=== PATIENT | female | born 2000 | race Hispanic/Latino ===

== ENCOUNTER 2023-05-05 13:13 | Outpatient (CLI) | payer OTHER, SELFPAY ==
[2023-05-05 14:40] LABS: Appearance Urine UA CLEAR; Bilirubin Urine UA NEGATIVE (NEGATIVE); Color Urine UA YELLOW; Glucose Urine UA NEGATIVE (Negative); Ketones Urine UA NEGATIVE (NEGATIVE); Leukocyte Esterase Urine UA 1+ (NEGATIVE); Nitrite Urine UA NEGATIVE (Negative); Occult Blood Urine UA NEGATIVE (Negative); Protein Urine UA NEGATIVE (Negative); Urobilinogen Urine UA 0.2 E.U./dL (0.2)
[2023-05-05 14:42] LABS: pH Urine UA 6.5 (4.5-8.0)
[2023-05-05 14:50] LABS: Bacteria Urine Many (>30); Culture Indicated Urine Specimen Cultured; RBC Urine None Seen (0-5/HPF); Squamous Epithelial Cell Urine 10-30 /HPF (0-5/HPF); WBC Urine 1-5/HPF (0-5/HPF)
--- NOTE | 2023-05-05 15:13 | P.TNLD_ITS ---
Visit Information Visit Information Date of evaluation: 05/05/23 Primary OB Provider: Katherine Canela On-call OB Provider: Romi Cronin Reason for Evaluation: Yes other Comments/Additional reasons for admission: Abdominal pain Vital Signs Vital Signs: Blood pressure 110/56, pulse 75, temperature 36.4? [facility] Medical History (Updated 05/05/23 @ 15:23 by Romi Cronin MD) Dysmenorrhea Irregular menses Surgical History (Updated 04/20/23 @ 08:06 by Elayne Thomas, RN) No pertinent past surgical history Family History (Updated 04/20/23 @ 08:09 by Elayne Thomas, RN) Mother Cancer Social History marital status: unmarried,single number of children: 0 lives independently: Yes caregiver/support person: No housing: apartment pets and animals: No education level: high school occupational status: employed (active duty, cook) current occupational exposures/hazards: No special naye needs: No travel history: recent (domestic only) seatbelt use: always water heater temp set < 120 deg: Yes working smoke detector in home: Yes fire extinguisher in home: No carbon monox detector in home: Yes firearms in home: No do you feel safe at home: Yes Smoking Status: Former smoker (quit age 20) Tobacco: How many years used: 3 (off and on) second hand exposure: No alcohol intake: former (occasionally when not ) substance use type: does not use during the past year weight has: increased > 10 lbs well-balanced diet: rarely or never daily servings fruits/ve-4 (1-2) caffeine: No Type(s) of exercise: none (hip/round ligament pain. Interested in PT referral.) additional social history: Currently going through a divorce, does not want her soon-to-be ex- to be contacted. Instructed pt that she needs to complete a HCPOA form with [facility] medical and get us a copy if she doesn't want her to be her NOK. She is also not sure at this point what the plan will be around child support and/or custody agreements, advised her to also discuss this with [facility] legal. Review of Systems Review of Systems Narrative: Patient complains of not feeling well. She is fatigued. She is having low pelvic pain and upper abdominal pain. Patient has had intermittent constipation. No vaginal bleeding. No leakage of fluid. Good movement. Patient does have significant amount of heartburn. She denies any UTI symptoms however notices her urine seems concentrated. Patient by history has been to the emergency room multiple times during this . She has been getting care at [facility]. We do not have access to those records other than a visit in to the emergency room for anxiety and depression. The patient states that she is getting good counseling and feels stable emotionally at this time. Exam Narrative Exam Narrative: Patient's abdomen is soft with tenderness in the mid upper abdomen without rebound. Uterus is nontender at the fundus and mid part of the uterus but complains of tenderness with palpation suprapubically. Objective Labs Labs: Laboratory Results - last 24 hr 05/05/23 13:25 Urine Color Yellow Urine Appearance Clear Urine pH 6.5 Ur Specific [place] 1.010 Urine Protein Negative Urine Glucose (UA) Negative Urine Ketones Negative Urine Occult Blood Negative Urine Nitrate Negative Urine Bilirubin Negative Urine Urobilinogen 0.2 Ur Leukocyte Esterase 1+ H Urine RBC None seen Urine WBC 1-5/hpf Ur Squamous Epith Cells 10-30 /hpf H Urine Bacteria Many (>30) H Ur Culture Indicated? Specimen cultured Evaluation Evaluation Baseline heart rate: 130 Variability: Moderate (11-25) monitor accelerations: Present Monitor Decelerations: Absent Category of Tracing: Reactive Status: Category l Cervical dilation (cm): 0 Cervical effacement (%): 0 station: -4 Comments: Patient with a couple of small contractions seen on monitor but nothing regular and the patient's symptoms do not appear to be labor symptoms. Diagnosis, Plan/Disposition Final Diagnosis (1) 33 weeks gestation of : Status: Acute (2) UTI (urinary tract infection): Status: Acute (3) Mild acid reflux: Status: Acute Plan/Disposition Plan: Patient with some vague symptoms of not feeling well with upper and lower abdominal pain with urine possibly showing UTI. Patient will be treated for possible UTI. She is to push fluids. Patient with upper abdominal pain could be from acid stomach. Patient will be started on omeprazole. Doubt labor but patient encouraged to rest and push fluids until her transferring OB care visit with Dr. Canela on 05/10. She was given a note to stay off work and rest until that visit. She is to return if she has vaginal bleeding, leakage of fluid, fevers, increasing abdominal pain. OB Disposition: home
== END 2023-05-05 15:06 | disposition home or self-care (01) ==
LOC: LABOR 13:40 → OB 05-06 12:20
PROVIDERS: PCP Student in an Organized Health Care Education/Training Program; Referring Provider Specialist; Visit Provider Specialist
DX: O23.43 Unspecified infection of urinary tract in pregnancy, third trimester (principal); O26.893 Other specified pregnancy related conditions, third trimester; K21.9 Gastro-esophageal reflux disease without esophagitis; Z3A.33 33 weeks gestation of pregnancy
CPT/HCPCS: 59025; 81001; 87086; G0378; G0379

== ENCOUNTER 2023-05-13 12:48 | Outpatient (CLI) | payer OTHER, SELFPAY ==
[2023-05-13 13:24] LABS: Appearance Urine UA CLEAR; Bilirubin Urine UA NEGATIVE (NEGATIVE); Color Urine UA YELLOW; Glucose Urine UA NEGATIVE (Negative); Ketones Urine UA 1+ (NEGATIVE); Leukocyte Esterase Urine UA TRACE (NEGATIVE); Nitrite Urine UA NEGATIVE (Negative); Occult Blood Urine UA NEGATIVE (Negative); Protein Urine UA 1+ (Negative); Specific Gravity Urine UA 1.025 (1.000-1.035)
[2023-05-13 13:42] LABS: Bacteria Urine Moderate (10-30); Culture Indicated Urine Specimen Cultured; Mucus Urine 1+ (Negative); RBC Urine 0-1/HPF (0-5/HPF); Squamous Epithelial Cell Urine 1-5 /HPF (0-5/HPF); WBC Urine 1-5/HPF (0-5/HPF)
--- NOTE | 2023-05-13 14:37 | P.TNLD_ITS ---
Visit Information Visit Information Date of evaluation: 05/13/23 Primary OB Provider: Katherine Canela On-call OB Provider: Romi Cronin Reason for Evaluation: Yes rule out labor Comments/Additional reasons for admission: Abdominal pain Vital Signs Vital Signs: Blood pressure 109/65, pulse 76, temperature 96.7? [facility] Medical History (Updated 05/13/23 @ 14:40 by Romi Cronin MD) Dysmenorrhea Irregular menses Surgical History (Updated 04/20/23 @ 08:06 by Elayne Thomas RN) No pertinent past surgical history Family History (Updated 05/10/23 @ 12:05 by Katherine Canela MD) Mother Cancer Social History marital status: unmarried,single number of children: 0 lives independently: Yes caregiver/support person: No housing: apartment pets and animals: No education level: high school occupational status: employed (active duty, cook) current occupational exposures/hazards: No special naye needs: No travel history: recent (domestic only) seatbelt use: always water heater temp set < 120 deg: Yes working smoke detector in home: Yes fire extinguisher in home: No carbon monox detector in home: Yes firearms in home: No do you feel safe at home: Yes Smoking Status: Former smoker (quit age 20) Tobacco: How many years used: 3 (off and on) second hand exposure: No alcohol intake: former (occasionally when not ) substance use type: does not use during the past year weight has: increased > 10 lbs well-balanced diet: rarely or never daily servings fruits/ve-4 (1-2) caffeine: No Type(s) of exercise: none (hip/round ligament pain. Interested in PT referral.) additional social history: Currently going through a divorce, does not want her soon-to-be ex- to be contacted. Instructed pt that she needs to complete a HCPOA form with [facility] and get us a copy if she doesn't want her to be her NOK. She is also not sure at this point what the plan will be around child support and/or custody agreements, advised her to also discuss this with [facility] legal. Review of Systems Review of Systems Narrative: Patient states she was constipated and had significant discomfort in her upper abdomen and felt prolonged tightness in her upper abdomen. Good movement. No vaginal bleeding. No leakage of fluid. No fever or chills. Patient is just finishing antibiotics she got a week ago when she presented complaining of abdominal pain and possible UTI. Exam Narrative Exam Narrative: Patient's abdomen is soft and nontender. Uterus is soft and nontender. Fetus is vertex. Objective Labs Labs: Laboratory Results - last 24 hr 05/13/23 13:05 Urine Color Yellow Urine Appearance Clear Urine pH 7.0 Ur Specific [place] 1.025 Urine Protein 1+ H Urine Glucose (UA) Negative Urine Ketones 1+ H Urine Occult Blood Negative Urine Nitrate Negative Urine Bilirubin Negative Urine Urobilinogen 1.0 Ur Leukocyte Esterase Trace H Urine RBC 0-1/hpf Urine WBC 1-5/hpf Ur Squamous Epith Cells 1-5 /hpf D Urine Bacteria Moderate (10-30) H Urine Mucus 1+ H Ur Culture Indicated? Specimen cultured Evaluation Evaluation Baseline heart rate: 135 Variability: Moderate (11-25) monitor accelerations: Present Monitor Decelerations: Absent Contraction Frequency (minutes): 0 Category of Tracing: Reactive Status: Category l Diagnosis, Plan/Disposition Final Diagnosis (1) 34 weeks gestation of : Status: Acute (2) Abdominal pain affecting : Status: Acute Plan/Disposition Plan: Patient with abdominal discomfort and tightness yesterday that resolved after having a bowel movement after constipation. Patient reassured that the discomfort and tightness were due to the constipation. Keep her routine OB appointment. OB Disposition: home
== END 2023-05-13 14:00 | disposition home or self-care (01) ==
LOC: LABOR 13:09 → OB 05-18 06:13
PROVIDERS: Specialist; PCP Student in an Organized Health Care Education/Training Program; Referring Provider Family Medicine; Visit Provider Family Medicine
DX: O26.893 Other specified pregnancy related conditions, third trimester (principal); K59.00 Constipation, unspecified; Z3A.34 34 weeks gestation of pregnancy
CPT/HCPCS: 59025; 81001; 87086; G0378; G0379

== ENCOUNTER → 2023-05-24 11:44 | Outpatient (CLI) | payer OTHER, SELFPAY ==
[2023-05-25 14:44] LABS: Strep Grp B PCR NEG for Grp B Strep
== END ==
PROVIDERS: PCP Student in an Organized Health Care Education/Training Program; Visit Provider Family Medicine
DX: Z34.03 Encounter for supervision of normal first pregnancy, third trimester (principal); Z3A.36 36 weeks gestation of pregnancy
CPT/HCPCS: 87653

== ENCOUNTER 2023-06-03 11:18 | Outpatient (CLI) | payer OTHER, SELFPAY ==
--- NOTE | 2023-06-03 15:53 | PM.OBTRLD ---
[facility] Medical History (Updated 06/03/23 @ 15:55 by Tata Perez DO) Dysmenorrhea Irregular menses Surgical History (Updated 04/20/23 @ 08:06 by Elayne Thomas RN) No pertinent past surgical history Family History (Updated 05/10/23 @ 12:05 by Katherine Canela MD) Mother Cancer Social History marital status: unmarried,single number of children: 0 lives independently: Yes caregiver/support person: No housing: apartment pets and animals: No education level: high school occupational status: employed (active duty, cook) current occupational exposures/hazards: No special nyae needs: No travel history: recent (domestic only) seatbelt use: always water heater temp set < 120 deg: Yes working smoke detector in home: Yes fire extinguisher in home: No carbon monox detector in home: Yes firearms in home: No do you feel safe at home: Yes Smoking Status: Former smoker (quit age 20) Tobacco: How many years used: 3 (off and on) second hand exposure: No alcohol intake: former (occasionally when not ) substance use type: does not use during the past year weight has: increased > 10 lbs well-balanced diet: rarely or never daily servings fruits/ve-4 (1-2) caffeine: No Type(s) of exercise: none (hip/round ligament pain. Interested in PT referral.) additional social history: Currently going through a divorce, does not want her soon-to-be ex- to be contacted. Instructed pt that she needs to complete a HCPOA form with [facility] and get us a copy if she doesn't want her to be her NOK. She is also not sure at this point what the plan will be around child support and/or custody agreements, advised her to also discuss this with [facility] legal. Diagnosis, Plan/Disposition Final Diagnosis (1) 37 weeks gestation of : Status: Acute (2) Decreased movement: Status: Acute Plan/Disposition Plan: 22yo at 37+1wks presented to triage for decreased movement. Reactive NST obtained by nursing, I reviewed this after the patient had departed. -f/u in clinic as scheduled OB Disposition: home
== END 2023-06-03 11:58 | disposition home or self-care (01) ==
LOC: LABOR 11:38 → OB 06-21 12:06
PROVIDERS: PCP Student in an Organized Health Care Education/Training Program; Referring Provider Family Medicine; Visit Provider Family Medicine
DX: O36.8130 Decreased fetal movements, third trimester, not applicable or unspecified (principal); Z3A.37 37 weeks gestation of pregnancy
CPT/HCPCS: 59025; G0378; G0379

== ENCOUNTER 2023-06-05 00:55 | Inpatient (IN) | payer OTHER, SELFPAY ==
--- NOTE | 2023-06-05 06:29 | PM.OBHP.1 ---
OB HPI Date/Time Date of admission: 06/05/23 Date Patient Seen: 06/05/23 Time Patient Seen: 06:29 History of Present Condition Chief complaint: contractions : 1 Para: 0 Estimated Date of Delivery: 06/23/23 Estimated Gestational Age (weeks): 37 Narrative: Alannah Casillas is a 22 year old female admitted with contractions and change in her cervix with patient concern for possible HSV infection requesting primary low-transverse section. Indications Operative indications ( section): HSV History of Present care: good care, initiated at week # (14) and number of visits (8) Dating criteria: LMP confirmed by 1st trimester US Medical complications: psychiatric (Anxiety and depression) Preadmission Labs Blood type: O (+) positive -: Antibody screen: negative, GBS status: negative, HBsAG: negative, HSV 1: positive, HSV 2: positive and RPR/VDLR: negative -: Chlamydia screen: not detected -: Varicella: immune HCAB: reactive Quad screen: Normal 1 hr GTT: 88 Evaluation Evaluation Baseline heart rate: 120 Variability: Moderate (11-25) monitor accelerations: Present Monitor Decelerations: Episodic Contraction Frequency (minutes): 3 Uterine Contraction Intensity: Moderate Category of Tracing: Reactive Status: Category ll Dilation (cm): 2 Effacement (%): 50 station: -2 Position of cervix: posterior Consistency: medium [facility] Medical History (Updated 06/05/23 @ 09:27 by Romi Cronin MD) Dysmenorrhea Irregular menses Surgical History (Updated 04/20/23 @ 08:06 by Elayne Thomas RN) No pertinent past surgical history Family History (Updated 05/10/23 @ 12:05 by Katherine Canela MD) Mother Cancer Social History marital status: unmarried,single number of children: 0 lives independently: Yes caregiver/support person: No housing: apartment pets and animals: No education level: high school occupational status: employed (active duty, cook) current occupational exposures/hazards: No special naye needs: No travel history: recent (domestic only) seatbelt use: always water heater temp set < 120 deg: Yes working smoke detector in home: Yes fire extinguisher in home: No carbon monox detector in home: Yes firearms in home: No do you feel safe at home: Yes Smoking Status: Former smoker (quit age 20) Tobacco: How many years used: 3 (off and on) second hand exposure: No alcohol intake: former (occasionally when not ) substance use type: does not use during the past year weight has: increased > 10 lbs well-balanced diet: rarely or never daily servings fruits/ve-4 (1-2) caffeine: No Type(s) of exercise: none (hip/round ligament pain. Interested in PT referral.) additional social history: Currently going through a divorce, does not want her soon-to-be ex- to be contacted. Instructed pt that she needs to complete a HCPOA form with [facility] medical and get us a copy if she doesn't want her to be her NOK. She is also not sure at this point what the plan will be around child support and/or custody agreements, advised her to also discuss this with [facility] legal. Meds Home Medications and Allergies Home Medications Medication Instructions Recorded Confirmed Type valacyclovir 500 mg tablet 500 mg PO BID 04/20/23 05/24/23 History cephalexin 500 mg capsule 500 mg PO BID Infection #14 caps 05/05/23 05/24/23 Rx omeprazole 40 mg capsule,delayed 40 mg PO DAILY #90 caps 05/05/23 05/24/23 Rx release ondansetron 4 mg disintegrating 4 mg PO Q8H PRN nausea and 05/24/23 05/24/23 Rx tablet vomiting #30 tabs Allergies Allergy/AdvReac Type Severity Reaction Status Date / Time aspirin Allergy Intermediate Hives Verified 05/24/23 11:24 Review of Systems Review of Systems Narrative: Patient arrived on Labor and delivery complaining contractions all day. They were consistent but shortened duration. Patient had noticed an increased vaginal discharge but no actual rupture membranes. No vaginal bleeding. Good movement. No headaches. Patient is concerned she might have an HSV infection despite taking medication for suppression. Patient had planned on primary section for her HSV concern. OB Exam Vital signs Blood Pressure: 115/66 Pulse Rate: 80 Temperature: 35.9 F Narrative Exam Narrative: HEENT exam within normal limits. Lungs are clear to auscultation percussion. No thyromegaly. Heart is regular rate and rhythm no S3-S4 murmurs. Abdomen is gravid. Fetus is vertex. Extremities without edema and nontender. Objective Labs 06/05/23 06:30 Assessment and Plan Assessment and Plan Assessment and Plan narrative: 22-year-old EDC 06/23 by LMP only now at 37 weeks 3 days arrived in early labor with history of HSV and concern for possible outbreak patient requesting primary low-transverse section Time Spent with Patient Total time spent with greater than 50% in coordination of care (as documented) at patient's floor/unit and/or counseling patient:: less than 15 minutes
[2023-06-05 06:44] VITALS: BP 115/66; PULSE 80; TEMP 2.2; TEMP 35.9
--- NOTE | 2023-06-05 07:01 | PM.PREOP ---
Pre-operative Note Interval Note History & Physical reviewed/Exam performed by Physician: Yes Changes to H&P: No
[2023-06-05 07:59] LABS: Add Manual Diff / Slide Review NO; Basophils Absolute Auto 100 /uL (0-100); Basophils Percent Auto 0.4 % (0-2); Eosinophils Absolute Auto 100 /uL (0-450); Eosinophils Percent Auto 0.7 % (2-4); Hematocrit 34.2 % (36-46); Hemoglobin 11.3 g/dL (12.0-16.0); Lymphocytes Absolute Auto 3300 /uL (1100-4500); Lymphocytes Percent Auto 23.2 % (25-40); Mean Corpuscular Hemoglobin 28.6 PG (26-34); Mean Corpuscular Volume 86.9 fL (80-100); Monocytes Absolute Auto 600 /uL (0-900); Neutrophils Absolute Auto 10100 /uL (1500-7000); Neutrophils Percent Auto 71.7 % (50-75); Platelet Count 260 X10^3/uL (150-400); Red Blood Cell Count 3.93 X10^6/uL (4.0-5.2); Red Cell Distribution Width 16.1 % (11.6-14.8); White Blood Cell Count 14.1 X10^3/uL (4.5-11.0)
[2023-06-05] MEDS: CEFAZOLIN 2 GM/100 ML PREMIX 100 ML IV (08:25)
[2023-06-05] MEDS: ACETAMINOPHEN IV 1,000 MG/100 ML VIAL 400 MG IV (08:35)
--- NOTE | 2023-06-05 08:40 | SUR.OPER ---
Supine on padded OR bed, head on pillow, arms secured on padded arm boards at <90 degrees abduction, legs uncrossed, safety belt at thigh, tape over blanket over lower legs.
--- NOTE | 2023-06-05 08:54 | SUR.OPER ---
Viable baby boy delivered at 0843. Placenta delivered. Placenta and cord blood tubesx2 given to L&D RN.
[2023-06-05 09:09] LABS: Hepatitis B Surface Antigen NEGATIVE s/c (NEGATIVE)
[2023-06-05 09:24] VITALS: BP 108/55; PULSE 76; RESP 14; TEMP 36.3; O2SAT 100
[2023-06-05 09:28] VITALS: BP 112/57; PULSE 78; RESP 18; O2SAT 100
--- NOTE | 2023-06-05 09:31 | PM.OBCS.1 ---
Operative Date/Time/Diagnoses Date of procedure: 06/05/23 Time of procedure: 09:31 Pre-op diagnosis: 37 week gestation in active labor with concerns for HSV for primary section Post-op diagnosis: same Procedure & Clinicians Procedure: Primary low-transverse section Same procedure as scheduled: Yes Indications: Active labor with concerns for HSV infection at 37 weeks Surgeon: Romi Cronin Click Yes if Unassisted: Yes Anesthesia Type: Spinal Operative Notes Findings: Vertex fetus, normal tubes, ovaries, uterus Closure Type: primary Specimen(s): cord blood Intraoperative meds administered: Acetaminophen, Duramorph, Ketorolac and Pitocin Applied: Catheter (Gomes) Estimated Blood Loss (mL): 300 Blood products transfused: none Procedure in detail: The patient was brought to the operating room where she underwent a spinal for anesthesia. She was placed in a supine position with a left lateral tilt. A Gomes catheter was placed. Pulsatile stockings were placed and functional throughout the case. 2 g of Ancef were given IV prior to the incision. Warming was in place. The patient was prepped and draped in usual sterile fashion. A low transverse incision was made with a scalpel and the incision was carried down to the fascial layer which was incised transversely with scissors. The midline attachments are superiorly and inferiorly. Some bleeding was controlled Bovie. The rectus muscles were in the midline and the peritoneal incision was made with no damage to internal structures. The peritoneum was incised and superiorly and inferiorly. The incision was stretched with the surgeon and program assistant placing traction. Bladder blade was placed and a bladder flap was developed and the bladder held away from the lower uterine segment. An incision was made in the uterus with the scalpel and the incision was extended with stretching. The head was elevated out of the abdomen and with fundal pressure by the program assistant the baby was delivered. The infant was bulb suctioned for clear fluid and handed off to the warmer. Cord blood was collected. The placenta delivered spontaneously with traction. The uterus was cleaned with clean laps. The uterine incision was closed in 2 layers of 0 chromic suture the first a running locking layer the second an imbricating layer. The bladder peritoneum was repaired with 2-0 Vicryl suture. The gutters were cleaned of any remaining fluids and ovaries and tubes were observed to be normal. Adequate hemostasis was noted. The peritoneum was closed with 2-0 Vicryl suture. The fascia layer was closed with 0 Vicryl suture with 2 stitches. The incision was irrigated and adequate hemostasis noted. The incision was closed with interrupted 3-0 Vicryl sutures and then a subcuticular stitch of 4-0 Vicryl suture. Steri-Strips were placed. The uterus was massaged to remove any clots. The patient went to recovery room in good condition. Counts of instruments and sponges were correct. Complications: none Baby 1: Infant Gender: Male Presentation: vertex Position: Right Occiput Anterior Placental Delivery Description: Spontaneous Cord Vessel Description: 3 Vessels score (1 min): 8 score (5 min): 8 weight: 5 lb 4.799 oz Post-operative Condition: stable Disposition: other ( Center) Aftercare: routine postop
[2023-06-05 09:33] VITALS: BP 112/52; PULSE 75; RESP 17; O2SAT 100
[2023-06-05 09:45] VITALS: BP 109/48; PULSE 70; RESP 20; TEMP 36.2; O2SAT 100
[2023-06-05] MEDS: KETOROLAC 30 MG/ML VIAL IV ×2 (15:45→21:45)
[2023-06-05] MEDS: ACETAMINOPHEN 325 MG TABLET 650 MG PO (17:50)
--- NOTE | 2023-06-05 20:23 | PM.OBPN.1 ---
Subjective - OB Subjective Patient comments: no complaints and pain well controlled [place] baby status: doing well [place] feeding status: exclusively breast feeding Narrative: Postoperative section doing well. Date Patient Seen: 06/05/23 Time Patient Seen: 20:23 Exam Vital Signs (past 8 hours): Blood pressure 105/54, pulse of 86, temperature 97.6? Oxygen Delivery Method Room Air Narrative Exam Narrative: Abdomen is soft, nontender. Uterus is firm, at U, nontender. Dressing is clean, dry, intact. Mild lochia. Extremities without edema and nontender Objective Labs 06/05/23 06:30 Labs: Laboratory Results - last 24 hr 06/05/23 06/05/23 06/05/23 06:30 06:30 06:30 WBC 14.1 H RBC 3.93 L Hgb 11.3 L Hct 34.2 L MCV 86.9 MCH 28.6 MCHC 33.0 RDW 16.1 H Plt Count 260 Neut % (Auto) 71.7 Lymph % (Auto) 23.2 L [place] % (Auto) 4.0 Eos % (Auto) 0.7 L Baso % (Auto) 0.4 Neut # (Auto) 84039 H Lymph # (Auto) 3300 [place] # (Auto) 600 Eos # (Auto) 100 Baso # (Auto) 100 Hep Bs Antigen Negative Rubella Antibody 112.0 Blood Type O Positive Antibody Screen Negative Assessment & Plan Plan day: 0 plan OB: routine postop care Comments: Patient is doing well. Time Spent With Patient Time: Total time spent is greater than 50% in coordination of care (as documented) at patient's floor/unit and/or counseling patient: Time with patient: less than 15 minutes
[2023-06-06] MEDS: ACETAMINOPHEN 325 MG TABLET 650 MG PO ×3 (00:42→13:08)
[2023-06-06] MEDS: KETOROLAC 30 MG/ML VIAL IV (03:40)
[2023-06-06 05:10] LABS: RPR Screen Non Reactive (Non Reactive)
[2023-06-06 11:57] LABS: Add Manual Diff / Slide Review NO; Basophils Absolute Auto 0 /uL (0-100); Basophils Percent Auto 0.3 % (0-2); Eosinophils Absolute Auto 100 /uL (0-450); Eosinophils Percent Auto 0.5 % (2-4); Hematocrit 27.2 % (36-46); Hemoglobin 9.1 g/dL (12.0-16.0); Lymphocytes Absolute Auto 1900 /uL (1100-4500); Lymphocytes Percent Auto 14.7 % (25-40); Mean Corpuscular HGB Conc 33.2 % (30-36); Mean Corpuscular Volume 87.2 fL (80-100); Monocytes Absolute Auto 800 /uL (0-900); Monocytes Percent Auto 5.9 % (3-14); Neutrophils Absolute Auto 10100 /uL (1500-7000); Neutrophils Percent Auto 78.6 % (50-75); Platelet Count 222 X10^3/uL (150-400); Red Blood Cell Count 3.13 X10^6/uL (4.0-5.2); Red Cell Distribution Width 15.8 % (11.6-14.8); White Blood Cell Count 12.8 X10^3/uL (4.5-11.0)
--- NOTE | 2023-06-06 12:13 | PM.OBDS.1 ---
Discharge Providers Provider Date of admission: 06/05/23 00:55 Discharge Date: 06/06/23 Primary care physician: Preet Leyva DO Consults: 06/05/23 09:48 Consult to Intelligence Analyst Routine Comment: Discharge provider: Romi Cronin MD Summary Hospital Course Date Patient Seen: 06/06/23 Time Patient Seen: 12:13 Diagnoses: 37 week gestation in active labor with concern for HSV infection status post primary low-transverse section Hospital Course: Patient arrived on Labor and delivery in active labor with concern for HSV infection. She underwent a primary low-transverse section. She is bottle-feeding. She is passing gas. She is urinating and ambulating well. Tolerating a regular diet. Peripartum Data Delivery Method: Section (Primary for HSV concerns) Procedures: Primary low-transverse section complications: none [place] 1: Gender: Male Disposition of : home Discharge Diagnosis (1) Delivery by section using transverse incision of lower segment of uterus: Status: Acute (2) 37 weeks gestation of : Status: Acute (3) HSV infection: Status: Acute Problem Details: has had both oral and genital lesions Status at Discharge Cognitive/behavioral status at discharge: oriented Functional status at discharge: independent ambulation Overall status at discharge: patient is progressing back to baseline Time Spent with Patient Time attestation: Total time spent providing and/or coordinating discharge services: Time spent: Less than 30 minutes Objective Labs 06/06/23 11:50 Labs: Laboratory Results - last 24 hr 06/05/23 06:30 Serum VDRL Non reactive Exam Vital Signs (past 8 hours): Blood pressure 115/60, pulse 92, temperature 97.9? Oxygen Delivery Method Room Air Narrative Exam Narrative: Abdomen is soft, nontender. Uterus is firm, at U, appropriately tender. Dressing is clean, dry, intact. Mild lochia. Extremities with trace edema and nontender. Discharge Plan Discharge Plan Patient Disposition: Home Discharge orders & Medications Prescriptions: New docusate sodium 100 mg Capsule 100 mg PO DAILY Qty: 20 0RF ibuprofen 600 mg Tablet 600 mg PO Q6H Qty: 30 0RF oxycodone 5 mg Tablet 5 mg PO Q4H PRN (Reason: Pain, Moderate (4-6)) Qty: 20 0RF Continued ondansetron 4 mg tablet,disintegrating 4 mg PO Q8H PRN (Reason: nausea and vomiting) Qty: 30 0RF omeprazole 40 mg capsule,delayed release(DR/EC) 40 mg PO DAILY Qty: 90 3RF valacyclovir 500 mg tablet 500 mg PO BID No Action ferrous gluconate 324 mg (38 mg iron) tablet 324 mg PO DAILY Qty: 30 0RF Rx Instructions: take with vitamin c Follow up/Referrals: Preet Leyva DO [Primary Care Provider] - Romi Cronin MD [Physician] - 1 Week (aquacel removal Plase call the clinic on Thursday 06/07 for an aquacel removal in one week. ) Diet/Activity/Treatments Diet: Regular Activity: Nothing in vagina or lifting over 10 lb for 6 weeks Skin/Wound/Dressing Care Report to your healthcare provider any signs of infection, such as:: chills, fever and increased pain Dressing: Leave dressing in place until postop appointment Visit Report/Discharge Packet Instructions: DI for , DI for Prescription Opioid Use Stand Alone Forms: Discharge: Care, Patient Portal/API Discharge Data Primary Care Provider: Preet Leyva Attending Provider: Romi Cronin Admit Date/Time: 06/05/23 00:55 Discharges patient from system. Discharge Date/Time: 06/06/23 14:12
[2023-06-06 13:03] VITALS: BP 115/60; PULSE 92; RESP 15; TEMP 36.2
[2023-06-06] MEDS: IBUPROFEN 600 MG TABLET PO (13:08)
[2023-06-06] MEDS: DOCUSATE 100 MG CAPSULE PO (13:09)
== END 2023-06-06 14:12 | disposition home or self-care (01) | DRG 788 ==
PROVIDERS: Admitting Provider Specialist; PCP Student in an Organized Health Care Education/Training Program; Referring Provider Specialist; Visit Provider Specialist
PROC: 10D00Z1 Extraction of Products of Conception, Low, Open Approach (ICD-10-PCS; CPT 59514; principal; 2023-06-05 08:30)
DX: O98.32 Other infections with a predominantly sexual mode of transmission complicating childbirth (principal); Z3A.37 37 weeks gestation of pregnancy; Z37.0 Single live birth; A60.9 Anogenital herpesviral infection, unspecified; B00.1 Herpesviral vesicular dermatitis; O99.344 Other mental disorders complicating childbirth; F41.8 Other specified anxiety disorders
CPT/HCPCS: 36415; 59050; 59515; 80055; 85025; 86850; 86900; 86901; G0378; G0379; J0131; J0690; J1885; J2274; J2405; J2704

== ENCOUNTER 2023-06-26 21:49 | Emergency (ER) | payer OTHER, SELFPAY ==
[2023-06-26] VITALS (7 sets, daily range): BP systolic 107–117; BP diastolic 55–62; PULSE 63–83; RESP 12–21; TEMP 37.5; O2SAT 97–100; BMI 32.1
--- NOTE | 2023-06-26 21:52 | DI.RAD.S_ITS ---
PROCEDURE: XR CHEST 1V INDICATIONS: Chest pain. TECHNIQUE: One view of the chest was acquired. COMPARISON: None. FINDINGS: Surgical changes and devices: None. Lungs and pleura: Lungs are clear. No pleural effusions or pneumothorax. Mediastinum: Mediastinal contours appear normal. Heart size is normal. Bones and chest wall: No suspicious bony lesions. Overlying soft tissues appear unremarkable. IMPRESSION: Portable chest within normal limits for age. Approved by: Sammy Gallego M.D. on 06/26/2023 at 21:47
[2023-06-26 22:09] LABS: Add Manual Diff / Slide Review NO; Basophils Absolute Auto 100 /uL (0-100); Basophils Percent Auto 0.9 % (0-2); Eosinophils Absolute Auto 200 /uL (0-450); Eosinophils Percent Auto 1.4 % (2-4); Hematocrit 30.8 % (36-46); Hemoglobin 10.2 g/dL (12.0-16.0); Lymphocytes Absolute Auto 3300 /uL (1100-4500); Mean Corpuscular Hemoglobin 28.3 PG (26-34); Mean Corpuscular Volume 85.8 fL (80-100); Monocytes Absolute Auto 600 /uL (0-900); Monocytes Percent Auto 5.4 % (3-14); Neutrophils Absolute Auto 7200 /uL (1500-7000); Neutrophils Percent Auto 63.3 % (50-75); Platelet Count 278 X10^3/uL (150-400); Red Blood Cell Count 3.59 X10^6/uL (4.0-5.2); Red Cell Distribution Width 16.3 % (11.6-14.8); White Blood Cell Count 11.4 X10^3/uL (4.5-11.0)
[2023-06-26 22:18] LABS: Alanine Aminotransferase 22 IU/L (<35); Albumin 3.7 g/dL (3.5-5.0); Albumin Globulin Ratio 1.2 (1.0-2.8); Alkaline Phosphatase 106 U/L (38-126); Aspartate Aminotransferase 25 IU/L (14-36); BUN Creatinine Ratio 10.3 (6-22); Bilirubin Total 0.5 mg/dL (0.2-1.3); Blood Urea Nitrogen 6 mg/dL (7-17); Calcium 8.5 mg/dL (8.4-10.2); Carbon Dioxide 22 mmol/L (22-32); Chloride 106 mmol/L (98-107); Estimated Glomerular Filt Rate > 60 mL/min (>60); Glucose 95 mg/dL (70-100); HEMOLYSIS 23 (0-50); Lipase 131 U/L (23-300); Potassium 3.8 mmol/L (3.4-5.1); Sodium 136 mmol/L (137-145); Total Protein 6.7 g/dL (6.3-8.2)
--- NOTE | 2023-06-26 22:21 | ED.CHESTPAIN ---
HPI - Chest Pain General Chief Complaint: Chest Pain Stated Complaint: Sudden onset Chest/Abdominal Pain Time Seen by Provider: 06/26/23 21:49 Source: patient and EMS Mode of arrival: EMS Limitations: no limitations History of Present Illness HPI narrative: Patient is a 22-year-old female. She is 3 weeks from a . She is not . She stated that she was at her normal state of health. She was burping her baby at the time that she had the onset of symptoms. She stated that the child was lying on her chest. She stated that she started to have pain in her chest and then in her abdomen. It was sharp pain. No problems breathing. She stated that the pain was persistent until she received some fentanyl by EMS prior to arrival. She states that currently she is not chest pain-free but it is much improved. She did vomit 2 times. States that vomiting did improve the chest pain somewhat. The C-sections no other abdominal surgeries. 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 Pain did not radiate anywhere and was just in the front of her chest and upper abdomen. Related Data Home Medications Medication Instructions Recorded Confirmed valacyclovir 500 mg tablet 500 mg PO BID 04/20/23 06/14/23 Previous Rx's Medication Instructions Recorded omeprazole 40 mg capsule,delayed 40 mg PO DAILY #90 caps 05/05/23 release ondansetron 4 mg disintegrating 4 mg PO Q8H PRN nausea and 05/24/23 tablet vomiting #30 tabs docusate sodium 100 mg capsule 100 mg PO DAILY #20 caps 06/06/23 ferrous gluconate 324 mg (38 mg 324 mg PO DAILY anemia #30 tabs 06/06/23 iron) tablet ibuprofen 600 mg tablet 600 mg PO Q6H #30 tabs 06/06/23 oxycodone 5 mg tablet 5 mg PO Q4H PRN Pain, Moderate 06/06/23 (4-6) #20 tabs sertraline 25 mg tablet 25 mg PO DAILY #30 tabs 06/14/23 Allergies Allergy/AdvReac Type Severity Reaction Status Date / Time aspirin Allergy Intermediate Hives Verified 06/14/23 11:53 Review of Systems Constitutional Constitutional: Reports system reviewed and no additional complaints, except as documented Cardiovascular Cardiovascular: Reports system reviewed and no additional complaints, except as documented Respiratory Respiratory: Reports system reviewed and no additional complaints, except as documented Gastrointestinal Gastrointestinal: Reports system reviewed and no additional complaints, except as documented Genitourinary Genitourinary: Reports system reviewed and no additional complaints, except as documented Musculoskeletal Musculoskeletal: Reports system reviewed and no additional complaints, except as documented Integumentary/Breasts Skin/Breast: Reports system reviewed and no additional complaints, except as documented Hematologic/Lymphatic On Anticoagulants: No Patient History Medical History Irregular menses Dysmenorrhea Surgical History (Updated 04/20/23 @ 08:06 by Elayne Thomas RN) No pertinent past surgical history Family History (Updated 05/10/23 @ 12:05 by Katherine Canela MD) Mother Cancer Social History marital status: unmarried,single number of children: 0 lives independently: Yes caregiver/support person: No housing: apartment pets and animals: No education level: high school occupational status: employed (active duty, cook) current occupational exposures/hazards: No special naye needs: No travel history: recent (domestic only) seatbelt use: always water heater temp set < 120 deg: Yes working smoke detector in home: Yes fire extinguisher in home: No carbon monox detector in home: Yes firearms in home: No do you feel safe at home: Yes Smoking Status: Former smoker Tobacco: How many years used: 3 (off and on) second hand exposure: No alcohol intake: former (occasionally when not ) substance use type: does not use during the past year weight has: increased > 10 lbs well-balanced diet: rarely or never daily servings fruits/ve-4 (1-2) caffeine: No Type(s) of exercise: none (hip/round ligament pain. Interested in PT referral.) additional social history: Currently going through a divorce, does not want her soon-to-be ex- to be contacted. Instructed pt that she needs to complete a HCPOA form with [facility] and get us a copy if she doesn't want her to be her NOK. She is also not sure at this point what the plan will be around child support and/or custody agreements, advised her to also discuss this with base legal. Smoking Status: Former smoker Substance Use Type: does not use Exam Initial Vital Signs Initial Vital Signs: Vital Signs Pulse Rate 69 06/26/23 21:52 Respiratory Rate 14 06/26/23 21:52 Pulse Oximetry 99 06/26/23 21:52 HENMT Head: normal to inspection and normocephalic Resp Effort & Inspection: normal respiratory effort Auscultation: clear to auscultation bilaterally Cardio Rate: regular rate Rhythm: regular rhythm GI Inspection: normal to inspection and non-distended Palpation: soft, No firm, No guarding and No tender Skin General: no rashes or lesions noted Neuro General: patient alert, patient awake and moves all extremities Extrem General: No edema Scores HEART Score Heart Score history: Slightly Suspicious Heart Score EKG: Non-Specific repolarization disturbance Heart Score Age: < 45 years old Heart Score risk factors: No known risk factors Heart Score troponin: < or = to normal limit Heart Score Total: 1 Course Orders Ordered: ED Orders 06/26/23 21:52 XR chest 1V Stat Complete Blood Count AUTO DIFF Stat Comprehensive Metabolic Panel Stat Covid-19 + FLU A/B + RSV - PCR Stat Lipase Stat 06/26/23 21:53 EKG-12 Lead Stat 06/26/23 22:12 Troponin & CK Cardiac Panel Stat Vital Signs Vital signs: Vital Signs - 8 hr 06/26/23 21:52 06/26/23 21:53 06/26/23 21:53 Temperature Pulse Rate 69 70 Respiratory Rate 14 16 Blood Pressure 117/55 L Pulse Oximetry 99 98 Oxygen Delivery Method 06/26/23 21:55 06/26/23 22:00 06/26/23 22:01 Temperature 99.5 F Pulse Rate 77 73 83 Respiratory Rate 18 12 20 Blood Pressure 117/55 L Pulse Oximetry 97 99 100 Oxygen Delivery Method Room Air 06/26/23 22:01 06/26/23 22:30 06/26/23 22:30 Temperature Pulse Rate 71 Respiratory Rate 17 Blood Pressure 114/60 107/61 Pulse Oximetry 100 Oxygen Delivery Method MDM - Chest Pain Medical Records Data Attestation: I reviewed the patient's medical records. Lab Data Attestation: I reviewed the patient's lab results. 06/26/23 21:52 06/26/23 21:52 Labs: Lab Results 06/26/23 Range/Units 21:52 WBC 11.4 H (4.5-11.0) X10^3/uL RBC 3.59 L (4.0-5.2) X10^6/uL Hgb 10.2 L (12.0-16.0) g/dL Hct 30.8 L (36-46) % MCV 85.8 (80-100) fL MCH 28.3 (26-34) PG MCHC 33.0 (30-36) % RDW 16.3 H (11.6-14.8) % Plt Count 278 (150-400) X10^3/uL Neut % (Auto) 63.3 (50-75) % Lymph % (Auto) 29.0 (25-40) % [place] % (Auto) 5.4 (3-14) % Eos % (Auto) 1.4 L (2-4) % Baso % (Auto) 0.9 (0-2) % Neut # (Auto) 7200 H (9558-0836) /uL Lymph # (Auto) 3300 (5404-8748) /uL [place] # (Auto) 600 (0-900) /uL Eos # (Auto) 200 (0-450) /uL Baso # (Auto) 100 (0-100) /uL Sodium 136 L (137-145) mmol/L Potassium 3.8 (3.4-5.1) mmol/L Chloride 106 (98-107) mmol/L Carbon Dioxide 22 (22-32) mmol/L BUN 6 L (7-17) mg/dL Creatinine 0.58 (0.52-1.04) mg/dL Estimated GFR > 60 (>60) mL/min BUN/Creatinine Ratio 10.3 (6-22) Glucose 95 (70-100) mg/dL Calcium 8.5 (8.4-10.2) mg/dL Total Bilirubin 0.5 (0.2-1.3) mg/dL AST 25 (14-36) IU/L ALT 22 (<35) IU/L Alkaline Phosphatase 106 (38-126) U/L Total Creatine Kinase 72 (30-135) U/L Troponin I < 0.012 (0.01-0.034) ng/mL Total Protein 6.7 (6.3-8.2) g/dL Albumin 3.7 (3.5-5.0) g/dL Globulin 3.0 (1.7-4.1) g/dL Albumin/Globulin Ratio 1.2 (1.0-2.8) Lipase 131 (23-300) U/L SARS-CoV-2 (PCR) Negative (Negative) Influenza A (RT-PCR) Flu a negative (NEGATIVE) Influenza B (RT-PCR) Flu b negative (NEGATIVE) RSV (PCR) Negative (Negative) Imaging Data Chest x-ray: Radiologist's Impression: PROCEDURE: XR CHEST 1V INDICATIONS: Chest pain. TECHNIQUE: One view of the chest was acquired. COMPARISON: None. FINDINGS: Surgical changes and devices: None. Lungs and pleura: Lungs are clear. No pleural effusions or pneumothorax. Mediastinum: Mediastinal contours appear normal. Heart size is normal. Bones and chest wall: No suspicious bony lesions. Overlying soft tissues appear unremarkable. IMPRESSION: Portable chest within normal limits for age. ECG Data Attestation: I personally reviewed and interpreted this ECG as follows: Interpretation: Sinus rhythm Ventricular rate is 74 Normal axis Inverted T-waves V3 and AVF No ST elevations MDM Narrative Medical decision making narrative: Chest x-ray is unremarkable. Nonspecific changes on the EKG. Low risk heart score. Low suspicion for pulmonary embolism. Low suspicion for ACS. No indication for antibiotics. Her LFTs and lipase unremarkable. Had a discussion with her regarding her symptoms. We did discuss the lack of a definitive etiology and she understands this. Patient can be safely discharged home. She even brought up whether or not this could potentially be anxiety which obviously this is a possibility. Will have patient follow-up with her primary provider. She was given return precautions. Discharge Plan Departure Patient Disposition: Home Clinical Impression: Atypical chest pain Instructions: DI for Atypical Chest Pain Activity Restrictions/Additional Instructions: Your workup here in the emergency department is very reassuring. You can try kydz-pit-zonrhfs reflux/heartburn medicine such as Maalox or Tums to see if this improves your symptoms. Recommend you contact your primary provider for a follow-up. Return to the emergency department for new or worsening symptoms. Prescriptions: No Action ondansetron 4 mg tablet,disintegrating 4 mg PO Q8H PRN (Reason: nausea and vomiting) Qty: 30 0RF sertraline 25 mg tablet 25 mg PO DAILY Qty: 30 2RF omeprazole 40 mg capsule,delayed release(DR/EC) 40 mg PO DAILY Qty: 90 3RF ferrous gluconate 324 mg (38 mg iron) tablet 324 mg PO DAILY Qty: 30 0RF Rx Instructions: take with vitamin c valacyclovir 500 mg tablet 500 mg PO BID docusate sodium 100 mg Capsule 100 mg PO DAILY Qty: 20 0RF ibuprofen 600 mg Tablet 600 mg PO Q6H Qty: 30 0RF oxycodone 5 mg Tablet 5 mg PO Q4H PRN (Reason: Pain, Moderate (4-6)) Qty: 20 0RF Referrals: Preet Leyva DO [Primary Care Provider] - Stand Alone Forms: Patient Portal/API
[2023-06-26 22:39] LABS: Creatine Kinase 72 U/L (30-135)
[2023-06-26 22:41] LABS: Influenza A - CEPHEID Flu A NEGATIVE (NEGATIVE); Influenza B - CEPHEID Flu B NEGATIVE (NEGATIVE); Respiratory Syncytial Virus Negative (Negative)
[2023-06-26 22:51] LABS: COVID-19 CEPHEID 4-PLEX PCR Negative (Negative)
[2023-06-26 22:52] LABS: Troponin I < 0.012 ng/mL (0.01-0.034)
== END 2023-06-26 23:20 | disposition home or self-care (01) ==
PROVIDERS: Emergency Provider Emergency Medicine; PCP Student in an Organized Health Care Education/Training Program
DX: R07.89 Other chest pain (principal); Z20.822 Contact with and (suspected) exposure to COVID-19
CPT/HCPCS: 0241U; 36415; 71045; 80053; 82550; 83690; 84484; 85025; 93005; 93010; 99284

== ENCOUNTER → 2023-06-28 14:15 | Outpatient (CLI) | payer OTHER, SELFPAY ==
[2023-06-28 14:47] LABS: Appearance Urine UA CLEAR; Bilirubin Urine UA NEGATIVE (NEGATIVE); Color Urine UA YELLOW; Glucose Urine UA NEGATIVE (Negative); Ketones Urine UA 2+ (NEGATIVE); Leukocyte Esterase Urine UA 1+ (NEGATIVE); Nitrite Urine UA NEGATIVE (Negative); Occult Blood Urine UA NEGATIVE (Negative); Protein Urine UA TRACE (Negative)
[2023-06-28 14:55] LABS: pH Urine UA 6.5 (4.5-8.0)
[2023-06-28 14:59] LABS: Add Manual Diff / Slide Review NO; Basophils Absolute Auto 0 /uL (0-100); Basophils Percent Auto 0.2 % (0-2); Eosinophils Absolute Auto 100 /uL (0-450); Eosinophils Percent Auto 0.9 % (2-4); Hematocrit 31.9 % (36-46); Hemoglobin 10.6 g/dL (12.0-16.0); Lymphocytes Absolute Auto 2600 /uL (1100-4500); Lymphocytes Percent Auto 22.7 % (25-40); Mean Corpuscular HGB Conc 33.2 % (30-36); Mean Corpuscular Hemoglobin 28.9 PG (26-34); Mean Corpuscular Volume 87.1 fL (80-100); Monocytes Absolute Auto 600 /uL (0-900); Monocytes Percent Auto 4.9 % (3-14); Neutrophils Absolute Auto 8100 /uL (1500-7000); Neutrophils Percent Auto 71.3 % (50-75); Platelet Count 301 X10^3/uL (150-400); Red Blood Cell Count 3.66 X10^6/uL (4.0-5.2); Red Cell Distribution Width 16.2 % (11.6-14.8); White Blood Cell Count 11.4 X10^3/uL (4.5-11.0)
[2023-06-28 15:01] LABS: Culture Indicated Urine Specimen Cultured
[2023-06-28 15:02] LABS: Bacteria Urine Moderate (10-30); RBC Urine None Seen (0-5/HPF); Squamous Epithelial Cell Urine 5-10 /HPF (0-5/HPF); WBC Urine 5-10/HPF (0-5/HPF)
[2023-06-28 15:21] LABS: Alanine Aminotransferase 19 IU/L (<35); Albumin 3.9 g/dL (3.5-5.0); Albumin Globulin Ratio 1.3 (1.0-2.8); Alkaline Phosphatase 110 U/L (38-126); Aspartate Aminotransferase 18 IU/L (14-36); BUN Creatinine Ratio 7.6 (6-22); Bilirubin Total 0.8 mg/dL (0.2-1.3); Blood Urea Nitrogen 5 mg/dL (7-17); Calcium 9.3 mg/dL (8.4-10.2); Carbon Dioxide 23 mmol/L (22-32); Chloride 106 mmol/L (98-107); Estimated Glomerular Filt Rate > 60 mL/min (>60); Glucose 90 mg/dL (70-100); HEMOLYSIS < 15 (0-50); Potassium 4.4 mmol/L (3.4-5.1); Sodium 138 mmol/L (137-145); Total Protein 6.9 g/dL (6.3-8.2)
== END ==
PROVIDERS: PCP Student in an Organized Health Care Education/Training Program; Referring Provider Family Medicine; Visit Provider Family Medicine
DX: N71.9 Inflammatory disease of uterus, unspecified (principal)
CPT/HCPCS: 36415; 80053; 81001; 85025; 87086

== ENCOUNTER → 2023-07-05 13:06 | Outpatient (CLI) | payer OTHER, SELFPAY ==
[2023-07-05 15:31] LABS: Clostridium Difficile Tox PCR Negative for C. diff (Negative)
[2023-07-05 18:43] LABS: Appearance Urine UA CLOUDY; Bilirubin Urine UA NEGATIVE (NEGATIVE); Color Urine UA YELLOW; Glucose Urine UA NEGATIVE (Negative); Ketones Urine UA NEGATIVE (NEGATIVE); Leukocyte Esterase Urine UA 2+ (NEGATIVE); Nitrite Urine UA NEGATIVE (Negative); Occult Blood Urine UA 3+ (Negative); Protein Urine UA NEGATIVE (Negative); Urobilinogen Urine UA 0.2 E.U./dL (0.2)
[2023-07-05 18:44] LABS: pH Urine UA 6.5 (4.5-8.0)
[2023-07-05 18:52] LABS: Amorphous Sediment Urine 1+; Bacteria Urine Moderate (10-30); Culture Indicated Urine Specimen Cultured; RBC Urine 10-30/HPF (0-5/HPF); Squamous Epithelial Cell Urine 5-10 /HPF (0-5/HPF); WBC Urine 5-10/HPF (0-5/HPF)
== END ==
PROVIDERS: PCP Student in an Organized Health Care Education/Training Program; Referring Provider Family Medicine; Visit Provider Family Medicine
DX: R19.7 Diarrhea, unspecified (principal); R10.9 Unspecified abdominal pain
CPT/HCPCS: 81001; 87077; 87086; 87186; 87493

== ENCOUNTER 2024-03-08 08:14 | Day surgery (SDC) | payer OTHER, SELFPAY ==
[2024-03-07 15:04] VITALS: BMI 31.1
[2024-03-08] VITALS (11 sets, daily range): BP systolic 104–135; BP diastolic 66–85; PULSE 50–81; RESP 12–22; TEMP 36.1–36.6; O2SAT 97–100; BMI 31.1
--- NOTE | 2024-03-08 | PATH_ITS ---
[facility] Accession Number: [id number] No. of containers..01 Tissue . 01 Material submitted: . gallbladder - GALLBLADDER . 01 Diagnosis: GALLBLADDER: Mild chronic cholecystitis with cholelithiasis. No dysplasia or malignancy identified. [facility] 03/10/20241454 Local . 01 Electronically signed: . Arian Weiner MD, Pathologist NPI- [id number] . 01 Gross description: . Received in formalin with two patient identifiers and gallbladder, is an intact gallbladder, 4.5 x 2.7 x 2.5 cm with an unremarkable external surface. The cystic duct margin is inked blue and no pericystic lymph node is identified. The lumen contains multiple yellow bosselated calculi measuring up to 0.6 cm in greatest dimension not grossly obstructing the cystic duct, and admixed with dark green viscous bile. The mucosa is green and velvety with yellow areas of discoloration, and no polyps or lesions identified. The graham average 0.2 cm thick. Hat Maker sections to include the cystic duct margin and full thickness sections are submitted in A1. ([id number]) /MRV 03/10/20241454 Local . 01 Pathologist provided ICD-10: K80.10 . 01 CPT . 410759 Specimen Comment: A courtesy copy of this report has been sent to [phone] Performed at: [address] [place] [address] [id number] MD Arian Weiner MD Phone: [phone]
[2024-03-08] MEDS: LACTATED RINGERS 1,000 ML 21 ML IV (09:14)
--- NOTE | 2024-03-08 09:25 | PM.PREOP ---
Pre-operative Note Interval Note History & Physical reviewed/Exam performed by Physician: Yes Changes to H&P: No
[2024-03-08] MEDS: CEFAZOLIN 2 GM/100 ML PREMIX 100 ML IV (09:35)
--- NOTE | 2024-03-08 09:44 | SUR.OPER ---
Supine on padded OR bed, head on pillow, arms secured on padded arm boards at <90 degrees abduction, legs uncrossed, safety belt at thigh, tape over blanket over lower legs. foot rest at end of bed
[2024-03-08] MEDS: BUPIVACAINE 0.25% (PF) VIAL 30 ML INJ (09:52)
--- NOTE | 2024-03-08 10:32 | P.OP_ITS ---
Operative Date/Time/Diagnoses Date of procedure: 03/08/24 Time of procedure: 10:32 Pre-op diagnosis: Biliary colic Post-op diagnosis: same Procedure & Clinicians Procedure: Laparoscopic cholecystectomy Same procedure as scheduled: Yes Indications: Symptoms when radiographic findings consistent with biliary colic Surgeon: Justice Lo[employer] Account Executive: Mj Gautam Anesthesia Type: General Operative Notes Findings: Critical view of safety established No acute cholecystitis Specimen(s): other (gallbladder) Estimated Blood Loss (mL): 50 Procedure in detail: The patient was placed supine on the table and bilateral lower extremity compression devices were applied. Anesthesia was induced they were intubated with an endotracheal tube and received 2g of Ancef. A time-out was performed. They were prepped and draped in sterile fashion. An infraumbilical incision was made. The fascia was elevated incised and the abdomen was entered atraumatically. A blunt tip 12mm balloon trocar was then inserted, pneumoperitoneum was established and inspection of the abdomen demonstrated no evidence of injury. They were placed head up and right side up and then a 11 mm port was placed high in the epigastrium and two 5mm in the right upper quadrant. The gallbladder was grasped by the fundus and retracted over the liver and retracted laterally by the infundibulum. Using electrocautery the lateral plane between the gallbladder and the liver was opened towards the fundus. The gallbladder was then retracted laterally and the medial plane was developed in the same manner. With the gallbladder mobilized the bottom of the cystic plate was visualized. The hepatocystic triangle was meticulosly skeletonized with blunt dissection of fat and fibrous tissue from both the front and the back. Only two structures were then clearly seen entering the gallbladder the cystic duct and the cystic artery. With the critical view of safety fully established the cystic duct was clipped twice proximally and once distally using the 10 mm Weck hemoclip applied under direct visualization and then sharply divided. The cystic artery was divided in the same fashion. The gallbladder was removed from the liver bed using electro cautery. The liver bed was then inspected for hemostasis and this was achieved. The abdomen was irrigated with sterile saline and inspection was made that showed the clips in good position. The specimen was removed using Endo-Catch. The abdomen was desufflated. The umbilical fascia was closed with 0 Vicryl in a [id number] fashion under direct visualization. Skin incisions were irrigated and closed with 4-0 Monocryl. 30 ml of 0.25% bupivacaine was infiltrated into the subcutaneous tissue of the incisions. The wounds were sealed with Dermabond. Patient emerged from anesthesia was extubated and transferred to recovery in stable condition. The sponge and instrument count at the end of the operation was correct. Complications: none Post-operative Condition: stable Disposition: same day surgery
[2024-03-08] MEDS: ONDANSETRON 4 MG/2 ML INJ IV (10:47)
[2024-03-08] MEDS: fentaNYL 100 MCG/2 ML INJ IV ×2 (10:52→10:58)
[2024-03-08] MEDS: TRAMADOL 50 MG TABLET PO ×2 (11:10→12:09)
[2024-03-08] MEDS: METOCLOPRAMIDE 10 MG/2 ML INJ IV (11:49)
[2024-03-08] MEDS: HYDROMORPHONE 1 MG INJ IV (11:59)
--- NOTE | 2024-03-08 12:03 | SUR.PHASEII ---
Patient reported abd pain, repositioned to dangle her legs on the side of the bed. She denied improvement. Continuous pulse ox placed. Medicated with dilaudid.
[2024-03-08] MEDS: KETOROLAC 30 MG/ML VIAL IV (12:25)
--- NOTE | 2024-03-08 12:27 | SUR.PHASEII ---
Patient reported pain and nausea is improving.
== END 2024-03-08 13:55 | disposition home or self-care (01) ==
PROVIDERS: PCP Student in an Organized Health Care Education/Training Program; Referring Provider Surgery; Visit Provider Surgery
PROC: 0FT44ZZ Resection of Gallbladder, Percutaneous Endoscopic Approach (ICD-10-PCS; CPT 47562; principal; 2024-03-08 09:45)
DX: K80.10 Calculus of gallbladder with chronic cholecystitis without obstruction (principal)
CPT/HCPCS: 47562; 81025; J0136; J0690; J1100; J1170; J1885; J2405; J2704; J2765; J3010

== ENCOUNTER 2024-03-29 17:38 | Emergency (ER) | payer OTHER, SELFPAY ==
[2024-03-29 17:39] VITALS: BP 129/60; PULSE 71; RESP 20; TEMP 36.9; O2SAT 98; BMI 32.1
[2024-03-29 18:40] LABS: Ur Creatinine Normal (Normal); Ur Specific Gravity Normal (Normal); Urine Cocaine Negative (Negative); Urine Tetrahydrocannabinol Negative (Negative); Urine pH Normal (Normal)
[2024-03-29 18:41] LABS: UR Morphine/Opiate cutoff 300 Negative (Negative); Urine Amphetamines Negative (Negative); Urine Barbiturates Negative (Negative); Urine Benzodiazepines Negative (Negative); Urine MDMA Negative (Negative); Urine Methadone Negative (Negative); Urine Methamphetamines Negative (Negative); Urine Oxycodone Negative (Negative); Urine Phencyclidine Negative (Negative); Urine Tricyclic Antidepressant Negative (Negative)
--- NOTE | 2024-03-29 19:30 | CM.SWNOTE ---
ED SUPERVISOR COAL HANDLING Assessment Note: Patient is a 23yo female, resident of [place], presents to the ED via EMS due to psychiatric symptoms. 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 Initial reports from EMS was that patient called the suicide hotline and expressed some ideation. Per ED Provider, patient is known to the department due to patient's frequent visits to the ED for her son. Per ED Provider, visits are typically for non-emergent reasons; evidencing anxiety. Per [facility], patient has been to another ED 6x so far this year. Patient's primary care provider is Dr. Catherine Larsen MD and insurance is [employer]. ED SUPERVISOR COAL HANDLING entered room, introduced self and role. Patient was found sitting up in bed and was agreeable to assessment. Patient is tearful throughout assessment, patient was speaking rapidly and needed reminders to take deep breaths to regulate. Patient expressed she is freaking out and having anxiety attacks. Patient explains that everything builds up and started to speak rapidly about stressors to include a tumultuous relationship with her (lives in [place], they were in the process of divorce and they are now trying to reconcile), out of the , finding discouraging information in her medical records, and recent cholecystectomy, two weeks ago. Patient denies having a mental health provider and explains she has been having difficulty in establishing psychiatric care, especially [facility]. Patient expresses she was inpatient at [facility] when she was 5months into her for suicidal ideation/depression. Patient denies any hallucinations, delusions at this time. Patient denies SI/HI at this time. Patient was tearful when explaining that she has no intent or plans but at times feel like my son doesn't deserve a depressed mom and I wish I didn't exist at times. Patient agreed that she felt overwhelmed with all of her life stressors and has little support she can trust locally. Patient explains her main source of support is with her mother who lives in [place]. Patient has some friends in the [place] who can assist with her son but she takes on a lot of the duties in and out of the home. ED SUPERVISOR COAL HANDLING discussed inpatient options for patient, patient requests that no referrals be made to facilities at this time as she wants to return home with her son. Patient is able to contract for safety and agreed to the safety plan of following up with [facility]. Patient is agreeable to a possible PRN anxiety medication if ED Provider will prescribe after assessment. ED SUPERVISOR COAL HANDLING entered [facility] Referral via online link, provided Patient with pamphlets for [facility] to familiarize with phone number when they reach out for intake. Plan: Patient to discharge home with [facility] leadership to transport, patient to follow up with [facility] for telehalth IOP services. LYNETTE Martinez
--- NOTE | 2024-03-29 19:33 | ED.PSYCH ---
HPI - Psych General Chief Complaint: Psychiatric Symptoms Stated Complaint: SI Time Seen by Provider: 03/29/24 17:57 Source: patient and EMS Mode of arrival: EMS History of Present Illness HPI Narrative: 23-year-old female presents by EMS from the [facility] for psychiatric evaluation. Patient called the SI hotline stating that she was very worried about multiple issues, including the health of her [id number] child, her marriage, and potentially having hepatitis-B, as seen on previous health records from the [facility]. Patient currently denying suicidal or homicidal ideations. Related Data Previous Rx's Medication Instructions Recorded hydroxyzine HCl 25 mg tablet 25 mg PO TID PRN anxiety #30 tabs 03/29/24 Allergies Allergy/AdvReac Type Severity Reaction Status Date / Time aspirin Allergy Intermediate Hives Verified 03/23/24 09:26 oxycodone Allergy Hives Verified 03/23/24 09:26 Patient History Medical History delivery delivered Irregular menses Dysmenorrhea Surgical History Previous section Family History Mother Cancer Social History marital status: unmarried,single number of children: 1 household members: children lives independently: Yes caregiver/support person: No housing: apartment pets and animals: No education level: high school occupational status: employed (active duty, cook) current occupational exposures/hazards: No special naye needs: No travel history: recent (domestic only) seatbelt use: always water heater temp set < 120 deg: Yes working smoke detector in home: Yes fire extinguisher in home: No carbon monox detector in home: Yes firearms in home: No do you feel safe at home: Yes Smoking Status: Former smoker Tobacco: How many years used: 3 (off and on) second hand exposure: No alcohol intake: former substance use type: does not use during the past year weight has: increased > 10 lbs well-balanced diet: rarely or never daily servings fruits/ve-4 (1-2) caffeine: No Type(s) of exercise: none (hip/round ligament pain. Interested in PT referral.) additional social history: Currently going through a divorce, does not want her soon-to-be ex- to be contacted. Instructed pt that she needs to complete a HCPOA form with [facility] and get us a copy if she doesn't want her to be her NOK. She is also not sure at this point what the plan will be around child support and/or custody agreements, advised her to also discuss this with [facility]. Smoking Status: Former smoker alcohol intake frequency: holidays/special occasions only Substance Use Type: does not use Exam Initial Vital Signs Initial Vital Signs: Vital Signs Temperature 98.5 F 03/29/24 17:39 Pulse Rate 71 03/29/24 17:39 Respiratory Rate 20 03/29/24 17:39 Blood Pressure 129/60 03/29/24 17:39 Pulse Oximetry 98 03/29/24 17:39 Oxygen Delivery Method Room Air 03/29/24 17:39 Const: Awake, alert, no acute distress, nontoxic appearing Cardiac: regular rate, regular rhythm RESP: unlabored, clear bilaterally, no wheezing GI: Soft, nontender, nondistended, no rebound, no guarding Skin: Warm, Dry, intact, no rashes Neuro: AO x3, CN II-XII grossly intact, moves all extremities Psych: Anxious affect, congruent mood, denies suicidal or homicidal ideations Course Orders Ordered: ED Orders 03/29/24 18:05 Acetaminophen Stat Complete Blood Count AUTO DIFF Stat Comprehensive Metabolic Panel Stat Ethanol (ETOH) Stat Free T4, Direct Thyroxine Stat Salicylate Stat Thyroid Stimulating Hormone Stat 03/29/24 18:27 Urine Drug Screen, Rapid Stat 03/29/24 18:47 Consult to [facility] [place] - Back Sewer Stat Vital Signs Vital signs: Vital Signs - 8 hr 03/29/24 17:39 03/29/24 21:14 Temperature 98.5 F 98.1 F Pulse Rate 71 78 Respiratory Rate 20 20 Blood Pressure 129/60 129/69 Pulse Oximetry 98 98 Oxygen Delivery Method Room Air Room Air MDM - Psych Lab Data Labs: Lab Results 03/29/24 Range/Units 18:27 U Opiates 300ng/mL cut Negative (Negative) Ur Oxycodone Screen Negative (Negative) Urine Methadone Screen Negative (Negative) Ur Barbiturates Screen Negative (Negative) U Tricyclic Antidepress Negative (Negative) Ur Phencyclidine Scrn Negative (Negative) Ur Amphetamines Screen Negative (Negative) U Methamphetamines Scrn Negative (Negative) Ur MDMA Scrn (Ecstasy) Negative (Negative) U Benzodiazepines Scrn Negative (Negative) Urine Cocaine Screen Negative (Negative) U Marijuana (THC) Screen Negative (Negative) Urine pH Normal (Normal) Urine Specific [place] Normal (Normal) Ur Creatinine Normal (Normal) Point of Care Testing Test Results Negative Urine Dip Bedside Urine Glucose Negative Bedside Urine Bilirubin - Negative Bedside Urine Ketone - Negative Urine Specific [place] 1.020 Bedside Urine Occult Blood +++ Bedside Urine pH 6.0 Bedside Urine Protein - Negative Bedside Urine Urobilinogen - Negative Bedside Urine Nitrite - Negative Bedside Urine Leukocytes - Negative Esterase MDM Narrative Medical decision making narrative: Patient brought in for psychiatric evaluation after calling the suicidal hotline. Patient denying suicidal or homicidal ideations at this time, but states that she is very stressed about numerous issues. Patient shows me her [facility] forms from 2019 showing a positive hepatitis-B surface antibody, negative hep B surface antigen, negative hep C. I explained to the patient that this indicates that she has been successfully vaccinated against hepatitis B, not that she has an infection. Patient spoke with social sciences chair and mental health resources provided. Discharge Plan Departure Patient Disposition: Home Clinical Impression: Acute anxiety Instructions: DI for Anxiety -- Adult Activity Restrictions/Additional Instructions: Follow up with [facility] as discussed with our social sciences chair. Use the hydroxyzine as needed for anxiety. I also recommend discussing with your primary doctor about potentially starting a low-dose antianxiety medication daily Prescriptions: New hydroxyzine HCl 25 mg tablet 25 mg PO TID PRN (Reason: anxiety) Qty: 30 0RF Referrals: Catherine Larsen MD [Primary Care Provider] - Stand Alone Forms: Patient Portal/API
[2024-03-29 21:14] VITALS: BP 129/69; PULSE 78; RESP 20; TEMP 36.7; O2SAT 98
== END 2024-03-29 21:23 | disposition home or self-care (01) ==
PROVIDERS: Emergency Medicine; Emergency Provider Emergency Medicine; PCP Student in an Organized Health Care Education/Training Program
DX: F41.9 Anxiety disorder, unspecified (principal)
CPT/HCPCS: 80305; 81003; 81025; 99283